=== PATIENT | female | born 1955 | race Caucasian/White ===

== ENCOUNTER 2019-01-07 08:57 | Emergency (ER) | payer MEDICARE, OTHER ==
[~2019-01-07] VITALS: Ht 165.1 cm; Wt 75.1 kg
[~2019-01-07 08:57] MED LIST: ACET-2615 PO; ASPI-1265 PO; ATOR10TA PO; CARV3.12 PO; CYCL-1 PO; LISI2.5T2 PO; NITR0.4T51 SL; TICA90TA PO
[2019-01-07 09:08] VITALS: BP 136/95
[2019-01-07] MEDS ORDERED: LIDOcaine 40mg/ml topical solution MM ONE (11:15)
[2019-01-07] MEDS ORDERED: LIDOcaine 4% (40 mg/ml) topical solution 50ml MM ONE (11:25)
[2019-01-07] MEDS ORDERED: gentamicin 0.1% topical ointment 15gm TP SCH (20:00)
== END 2019-01-07 12:28 | disposition home or self-care (01) ==
LOC: ER 08:57
DX: L08.89 Other specified local infections of the skin and subcutaneous tissue (principal); I25.10 Atherosclerotic heart disease of native coronary artery without angina pectoris; G89.29 Other chronic pain; Z95.5 Presence of coronary angioplasty implant and graft; Z98.51 Tubal ligation status; Z88.5 Allergy status to narcotic agent; Z79.899 Other long term (current) drug therapy; Z79.82 Long term (current) use of aspirin
CPT/HCPCS: 97597; 99284; J2001

== ENCOUNTER 2020-07-05 09:15 | Observation (INO) | payer MEDICAID, MEDICARE ==
[~2020-07-05] VITALS: Ht 165.1 cm; Wt 62.0 kg
[2020-07-05 09:52] LABS: EOSINOPHILS # (AUTO) 0.2 X10'3 (0-0.9); MEAN CORPUSCULAR HEMOGLOBIN 31.8 PG (27.0-31.0); MEAN PLATELET VOLUME 8.2 FL (7.4-10.4)
[2020-07-05 09:54] LABS: BASOPHILS % (AUTO) 0.8 % (0-1); EOSINOPHILS % (AUTO) 3.1 % (0-6); HEMATOCRIT 38.2 % (35.0-45.0); LYMPHOCYTES # (AUTO) 1.9 X10'3 (1.1-4.8); MEAN CORPUSCULAR HGB CONC 33.9 g/dL (33.0-36.5); MEAN CORPUSCULAR VOLUME 93.9 FL (78-98); MONOCYTES # (AUTO) 0.3 X10'3 (0-0.9); MONOCYTES % (AUTO) 4.6 % (2-12); NEUTROPHILS # (AUTO) 3.5 X10'3 (1.8-7.7); NEUTROPHILS % (AUTO) 59.5 % (42-75); PLATELET COUNT 247 X10'3 (140-440); RED BLOOD COUNT 4.07 X10'6 (4.20-5.60); RED CELL DISTRIBUTION WIDTH 13.4 % (11.5-14.5); WHITE BLOOD COUNT 5.9 X10'3 (4.5-11.0)
[2020-07-05 10:11] LABS: PARTIAL THROMBOPLASTIN TIME 27 SECONDS (22-32)
[2020-07-05 10:20] LABS: ALBUMIN 3.8 G/DL (3.4-5.0)
[2020-07-05 10:27] LABS: ALANINE AMINOTRANSFERASE 39 U/L (12-78); ALBUMIN/GLOBULIN RATIO 1.3 (1.1-1.5); ALKALINE PHOSPHATASE 71 IU/L (46-116); ANION GAP 9 (8-16); ASPARTATE AMINO TRANSFERASE 25 U/L (10-37); BILIRUBIN,TOTAL 0.5 MG/DL (0.1-1.0); BLOOD UREA NITROGEN 9 MG/DL (7-18); BUN/CREATININE RATIO 12.5 (6.6-38.0); CHLORIDE 108 MMOL/L (99-107); CREATININE 0.72 MG/DL (0.40-0.90); GLUCOSE 105 MG/DL (70-104); MAGNESIUM 1.8 MG/DL (1.5-2.4); POTASSIUM 4.1 MMOL/L (3.5-5.1); SODIUM 142 MMOL/L (135-145); TOTAL CARBON DIOXIDE 25.2 MMOL/L (24-32); TOTAL PROTEIN 6.7 G/DL (6.4-8.2); eGFR 82 ML/MIN
[2020-07-05] MEDS ORDERED: CLOP75TA33 PO (11:40)
[2020-07-05] MEDS ORDERED: ondansetron/PF 4mg/2ml inj IV PRN (11:45)
[2020-07-05] MEDS ORDERED: magnesium hydroxide 30ml (MOM) UD suspension PO PRN (11:45)
[2020-07-05] MEDS ORDERED: HYDROcodone/acetaminophen 5mg/325mg tablet PO PRN (11:45)
[2020-07-05] MEDS ORDERED: acetaminophen 325mg tablet PO PRN ×2 (11:45)
[2020-07-05] MEDS ORDERED: nitroGLYCERIN 0.4mg SUBLingual tab SL PRN ×2 (11:45→12:55)
[2020-07-05] MEDS ORDERED: morphine 2 MG/ML inj. syringe IV PRN ×2 (11:45)
[2020-07-05] MEDS ORDERED: HYDROcodone/acetaminophen 10/325mg tab PO PRN (11:45)
[2020-07-05] MEDS ORDERED: mag hydrox/Alum hydrox/simeth 30ml oral suspension PO PRN (11:45)
[2020-07-05] MEDS ORDERED: cyclobenzaprine 10mg tablet PO PRN (12:55)
--- NOTE | 2020-07-05 13:28 | NUR ---
Pt stable for transfer to unit. Oriented to room and call light by resource nurse. In no apparent distress. Will continue to monitor. VS: [id number]%-[id number]
--- NOTE | 2020-07-05 13:28 | NUR ---
Patient in room PCU 3012. I have received report from KEVIN Keys and had the opportunity to ask questions and assume patient care.
[2020-07-05 13:30] VITALS: BP 144/54
[2020-07-05 15:00] VITALS: BP 126/53
[2020-07-05 18:00] VITALS: BP 143/81
--- NOTE | 2020-07-05 18:00 | NUR ---
Patient in room U 3012. I have received report from Martha BROWN and had the opportunity to ask questions and assume patient care. Addendum: 07/05/20 at 1858 by Devika Goff RN Amended: Links added.
--- NOTE | 2020-07-05 18:14 | NUR ---
Problems reprioritized. Patient report given, questions answered & plan of care reviewed with KEVIN Fortune.
[2020-07-05] MEDS ORDERED: carVEDilol 3.125mg tablet PO SCH (20:00)
--- NOTE | 2020-07-05 20:00 | NUR ---
pt. awake A & O with no c/o chest ain at this time. Call light within reach. Addendum: 07/06/20 at 0703 by Devika Goff RN Amended: Links added.
[2020-07-05] MEDS ORDERED: atorvastatin 10mg tablet PO SCH (21:00)
[2020-07-05 22:00] VITALS: BP 117/58
[2020-07-06 02:00] VITALS: BP_SYST 116; BP_SYST 161; BP_DIAS 57
[2020-07-06 05:48] LABS: BASOPHILS % (AUTO) 0.7 % (0-1); EOSINOPHILS # (AUTO) 0.3 X10'3 (0-0.9); EOSINOPHILS % (AUTO) 4.9 % (0-6); HEMATOCRIT 37.5 % (35.0-45.0); HEMOGLOBIN 12.6 g/dl (12.0-16.0); LYMPHOCYTES % (AUTO) 38.8 % (21-51); MEAN CORPUSCULAR HEMOGLOBIN 31.4 PG (27.0-31.0); MEAN CORPUSCULAR HGB CONC 33.6 g/dL (33.0-36.5); MEAN CORPUSCULAR VOLUME 93.4 FL (78-98); MEAN PLATELET VOLUME 8.4 FL (7.4-10.4); MONOCYTES # (AUTO) 0.3 X10'3 (0-0.9); MONOCYTES % (AUTO) 5.4 % (2-12); NEUTROPHILS # (AUTO) 2.6 X10'3 (1.8-7.7); NEUTROPHILS % (AUTO) 50.2 % (42-75); PLATELET COUNT 214 X10'3 (140-440); RED BLOOD COUNT 4.01 X10'6 (4.20-5.60); WHITE BLOOD COUNT 5.2 X10'3 (4.5-11.0)
--- NOTE | 2020-07-06 06:00 | NUR ---
Problems reprioritized. Patient report given, questions answered & plan of care reviewed with Paz BROWN. Addendum: 07/06/20 at 0706 by Devika Goff RN Amended: Links added.
--- NOTE | 2020-07-06 06:00 | NUR ---
Patient in room PCU 3012. I have received report from Devika BROWN and had the opportunity to ask questions and assume patient care.
[2020-07-06 06:15] LABS: ALBUMIN 3.3 G/DL (3.4-5.0); ANION GAP 6 (8-16); BLOOD UREA NITROGEN 9 MG/DL (7-18); BUN/CREATININE RATIO 12.3 (6.6-38.0); CALCIUM 8.8 MG/DL (8.5-10.1); CHLORIDE 108 MMOL/L (99-107); CREATININE 0.73 MG/DL (0.40-0.90); GLUCOSE 92 MG/DL (70-104); POTASSIUM 4.2 MMOL/L (3.5-5.1); SODIUM 141 MMOL/L (135-145); TOTAL CARBON DIOXIDE 26.7 MMOL/L (24-32); eGFR 80 ML/MIN
[2020-07-06 07:00] VITALS: BP 114/55
[2020-07-06 07:34] VITALS: BP_SYST 114
[2020-07-06] MEDS ORDERED: aspirin 81mg tab.chew PO SCH (08:00)
[2020-07-06] MEDS ORDERED: lisinopril 2.5mg tablet PO SCH (08:00)
[2020-07-06] MEDS ORDERED: aspirin 81mg tablet.DR PO SCH (08:00)
[2020-07-06] MEDS ORDERED: clopidogrel 75mg tablet PO SCH (08:00)
--- NOTE | 2020-07-06 10:10 | NUR ---
Patient was discharged to home at 1004. PIV was removed with cannula intact. Patient was picked up by her . Discharge instructions were reviewed with the patient and she verbalized understanding of instructions and when to seek medical attention. No new RX.
== END 2020-07-06 10:04 | disposition home or self-care (01) ==
LOC: ER 09:16 → ED HOLD 11:44 → EDBEDREQ 12:48 → PCU 3S 13:29
PROVIDERS: ADMIT Internal Medicine; ATTEND Internal Medicine
DX: R00.1 Bradycardia, unspecified (principal); I25.119 Atherosclerotic heart disease of native coronary artery with unspecified angina pectoris; R07.89 Other chest pain; I10 Essential (primary) hypertension; E78.5 Hyperlipidemia, unspecified; I25.2 Old myocardial infarction; E78.00 Pure hypercholesterolemia, unspecified; G89.29 Other chronic pain; M54.9 Dorsalgia, unspecified; F17.200 Nicotine dependence, unspecified, uncomplicated; Z98.51 Tubal ligation status; Z98.61 Coronary angioplasty status; Z79.82 Long term (current) use of aspirin; Z79.02 Long term (current) use of antithrombotics/antiplatelets; Z79.899 Other long term (current) drug therapy; Z88.5 Allergy status to narcotic agent
CPT/HCPCS: 36415; 71045; 80048; 80053; 83735; 83880; 84443; 84484; 85025; 85610; 85730; 93005; 99285; G0378

== ENCOUNTER 2021-06-19 08:22 | Emergency (ER) | payer MEDICARE, SELFPAY ==
[~2021-06-19] VITALS: Ht 165.1 cm; Wt 61.4 kg
[~2021-06-19 08:22] MED LIST changes: -ACET-2615 PO; -CARV3.12 PO; +CLOP75TA33 PO; +LISI2.5T14 PO; -LISI2.5T2 PO; -TICA90TA PO
[2021-06-19 09:07] LABS: BASOPHILS % (AUTO) 0.6 % (0-1); EOSINOPHILS # (AUTO) 0.3 X10'3 (0-0.9); EOSINOPHILS % (AUTO) 3.4 % (0-6); HEMATOCRIT 39.1 % (35.0-45.0); HEMOGLOBIN 13.1 g/dl (12.0-16.0); LYMPHOCYTES # (AUTO) 1.7 X10'3 (1.1-4.8); LYMPHOCYTES % (AUTO) 23.4 % (21-51); MEAN CORPUSCULAR HEMOGLOBIN 31.6 PG (27.0-31.0); MEAN CORPUSCULAR HGB CONC 33.6 g/dL (33.0-36.5); MEAN CORPUSCULAR VOLUME 93.9 FL (78-98); MONOCYTES # (AUTO) 0.4 X10'3 (0-0.9); MONOCYTES % (AUTO) 5.5 % (2-12); NEUTROPHILS # (AUTO) 4.9 X10'3 (1.8-7.7); NEUTROPHILS % (AUTO) 67.1 % (42-75); PLATELET COUNT 311 X10'3 (140-440); RED BLOOD COUNT 4.16 X10'6 (4.20-5.60); RED CELL DISTRIBUTION WIDTH 13.5 % (11.5-14.5); WHITE BLOOD COUNT 7.3 X10'3 (4.5-11.0)
[2021-06-19 09:44] LABS: ALANINE AMINOTRANSFERASE 40 U/L (12-78); ALBUMIN 4.1 G/DL (3.4-5.0); ALBUMIN/GLOBULIN RATIO 1.3 (1.1-1.5); ALKALINE PHOSPHATASE 97 IU/L (46-116); ANION GAP 8 (8-16); ASPARTATE AMINO TRANSFERASE 19 U/L (10-37); BILIRUBIN,TOTAL 0.5 MG/DL (0.1-1.0); BLOOD UREA NITROGEN 10 MG/DL (7-18); BUN/CREATININE RATIO 13.7 (6.6-38.0); CALCIUM 9.1 MG/DL (8.5-10.1); CHLORIDE 106 MMOL/L (99-107); CREATININE 0.73 MG/DL (0.40-0.90); GLUCOSE 95 MG/DL (70-104); POTASSIUM 4.2 MMOL/L (3.5-5.1); SODIUM 141 MMOL/L (135-145); TOTAL CARBON DIOXIDE 26.8 MMOL/L (24-32); TOTAL PROTEIN 7.2 G/DL (6.4-8.2); eGFR 80 ML/MIN
[2021-06-19 12:07] VITALS: BP 125/67
== END 2021-06-19 12:07 | disposition home or self-care (01) ==
LOC: ER 08:22
DX: M62.838 Other muscle spasm (principal); R07.89 Other chest pain; R20.0 Anesthesia of skin; M54.9 Dorsalgia, unspecified; I25.10 Atherosclerotic heart disease of native coronary artery without angina pectoris; E78.00 Pure hypercholesterolemia, unspecified; G89.29 Other chronic pain; Z95.5 Presence of coronary angioplasty implant and graft; Z98.51 Tubal ligation status; Z79.82 Long term (current) use of aspirin; Z79.899 Other long term (current) drug therapy; Z72.89 Other problems related to lifestyle
CPT/HCPCS: 36415; 71045; 80053; 83880; 84484; 85025; 93005; 99285

== ENCOUNTER 2021-12-06 07:45 | Emergency (ER) | payer MEDICARE, SELFPAY ==
[~2021-12-06] VITALS: Ht 165.1 cm; Wt 65.1 kg
[2021-12-06 07:46] VITALS: BP 172/78
--- NOTE | 2021-12-06 07:58 | NUR ---
pt ambulated with steady gait to er bed 12.
--- NOTE | 2021-12-06 08:24 | NUR ---
xray at bedside.
--- NOTE | 2021-12-06 08:50 | NUR ---
provider at bedside.
[2021-12-06] MEDS ORDERED: ALBUTEROL INHALER 1 PUFF/90 MCG INHALER IH PRN (09:05)
== END 2021-12-06 09:32 | disposition home or self-care (01) ==
LOC: ER 07:45
DX: S93.601A Unspecified sprain of right foot, initial encounter (principal); I25.10 Atherosclerotic heart disease of native coronary artery without angina pectoris; E78.00 Pure hypercholesterolemia, unspecified; G89.29 Other chronic pain; Z95.5 Presence of coronary angioplasty implant and graft; Z98.51 Tubal ligation status; Z72.89 Other problems related to lifestyle; Z88.8 Allergy status to other drugs, medicaments and biological substances; Z79.82 Long term (current) use of aspirin; Z79.899 Other long term (current) drug therapy; X58.XXXA Exposure to other specified factors, initial encounter; Y93.89 Activity, other specified; Y92.89 Other specified places as the place of occurrence of the external cause; Y99.8 Other external cause status
CPT/HCPCS: 29515; 73630; 99283

== ENCOUNTER 2022-03-07 16:59 | Emergency (ER) | payer MEDICARE, SELFPAY ==
[~2022-03-07] VITALS: Ht 165.1 cm; Wt 63.2 kg
[2022-03-07] MEDS ORDERED: LIDOcaine 5% patch TP STA ×2 (18:08→20:29)
[2022-03-07] MEDS ORDERED: IODIXANOL 320 MG/ML INFUS..BTL 100ML IV ONE (18:15)
[2022-03-07 18:54] LABS: BASOPHILS % (AUTO) 0.4 % (0-1); EOSINOPHILS # (AUTO) 0.2 X10'3 (0-0.9); EOSINOPHILS % (AUTO) 2.1 % (0-6); HEMATOCRIT 38.3 % (35.0-45.0); HEMOGLOBIN 13.3 g/dl (12.0-16.0); LYMPHOCYTES # (AUTO) 1.5 X10'3 (1.1-4.8); LYMPHOCYTES % (AUTO) 15.2 % (21-51); MEAN CORPUSCULAR HEMOGLOBIN 31.8 PG (27.0-31.0); MEAN CORPUSCULAR HGB CONC 34.7 g/dL (33.0-36.5); MEAN CORPUSCULAR VOLUME 91.7 FL (78-98); MEAN PLATELET VOLUME 8.1 FL (7.4-10.4); MONOCYTES # (AUTO) 0.3 X10'3 (0-0.9); MONOCYTES % (AUTO) 2.9 % (2-12); NEUTROPHILS % (AUTO) 79.4 % (42-75); PLATELET COUNT 298 X10'3 (140-440); RED BLOOD COUNT 4.18 X10'6 (4.20-5.60); RED CELL DISTRIBUTION WIDTH 13.4 % (11.5-14.5); WHITE BLOOD COUNT 10.1 X10'3 (4.5-11.0)
[2022-03-07] MEDS ORDERED: morphine 4 MG/ML inj SYRINge IV ONE (19:00)
[2022-03-07] MEDS ORDERED: ondansetron/PF 4mg/2ml inj IV ONE (19:00)
[2022-03-07 19:24] LABS: APTT 27 SECONDS (22-32)
[2022-03-07 19:45] LABS: CLARITY,URINE CLEAR (Clear); COLOR,URINE YELLOW (Yellow); GLUCOSE, URINE NEGATIVE (Neg); KETONES,URINE NEGATIVE (Neg); LEUKOCYTE ESTERASE ,URINE NEGATIVE (Neg); NITRITES, URINE NEGATIVE (Neg); OCCULT BLOOD,URINE NEGATIVE (Neg); PH,URINE 5.5 (4.8-8.0); PROTEIN,URINE NEGATIVE (Neg); UROBILINOGEN,URINE 0.2 E.U/dL (0.2-1.0)
[2022-03-07 19:46] LABS: UA COLLECTION TYPE CLN CATCH MIDSTREAM
[2022-03-07 20:12] LABS: ALANINE AMINOTRANSFERASE 28 U/L (12-78); ALBUMIN/GLOBULIN RATIO 1.3 (1.1-1.5); ALKALINE PHOSPHATASE 89 IU/L (46-116); ANION GAP 7 (8-16); ASPARTATE AMINO TRANSFERASE 18 U/L (10-37); BILIRUBIN,TOTAL 0.3 MG/DL (0.1-1.0); BLOOD UREA NITROGEN 10 MG/DL (7-18); BUN/CREATININE RATIO 12.3 (6.6-38.0); CHLORIDE 106 MMOL/L (99-107); CREATININE 0.81 MG/DL (0.40-0.90); GLUCOSE 114 MG/DL (70-104); SODIUM 138 MMOL/L (135-145); TOTAL CARBON DIOXIDE 24.6 MMOL/L (24-32); eGFR 71 ML/MIN
[2022-03-07] MEDS ORDERED: LIDO1ADH78 TOP (20:34)
[2022-03-07 20:44] VITALS: BP 153/68
== END 2022-03-07 21:00 | disposition home or self-care (01) ==
LOC: ER 16:59
DX: M54.50 Low back pain, unspecified (principal); R11.2 Nausea with vomiting, unspecified; I71.4 Abdominal aortic aneurysm, without rupture; I10 Essential (primary) hypertension; I25.10 Atherosclerotic heart disease of native coronary artery without angina pectoris; E78.00 Pure hypercholesterolemia, unspecified; G89.29 Other chronic pain; Z98.51 Tubal ligation status; Z98.890 Other specified postprocedural states; Z72.89 Other problems related to lifestyle; Z88.5 Allergy status to narcotic agent; Z88.8 Allergy status to other drugs, medicaments and biological substances; Z79.82 Long term (current) use of aspirin; Z79.899 Other long term (current) drug therapy
CPT/HCPCS: 36415; 71275; 74174; 80053; 81003; 84484; 85025; 85610; 85730; 93005; 96374; 96375; 99285; J2270; J2405; Q9967

== ENCOUNTER 2023-03-06 07:36 | Emergency (ER) | payer MEDICARE, SELFPAY ==
[~2023-03-06] VITALS: Ht 165.1 cm; Wt 65.9 kg
[~2023-03-06 07:36] MED LIST changes: +LIDO1ADH78 TOP
[2023-03-06 07:50] VITALS: BP 164/65
--- NOTE | 2023-03-06 08:33 | NUR ---
OP WOUND CARE REFERRAL FAXED
[2023-03-06] MEDS ORDERED: tetanus & diphtheria toxoid (Td) vaccine 0.5ml IMVAC ONE (08:40)
[2023-03-06] MEDS ORDERED: TETanus/Pertussis (Acell)/Diphther VAC/PF (Tdap-Adult) 0.5ml syringe IMVAC ONE (08:45)
== END 2023-03-06 09:14 | disposition home or self-care (01) ==
LOC: ER 07:36
DX: R20.8 Other disturbances of skin sensation (principal); E78.00 Pure hypercholesterolemia, unspecified; Z88.5 Allergy status to narcotic agent; Z98.51 Tubal ligation status
CPT/HCPCS: 90471; 90715; 99284

== ENCOUNTER 2024-06-26 08:03 | Outpatient (CLI) | payer MEDICARE, SELFPAY ==
[2024-06-26 09:17] LABS: ALBUMIN 3.8 G/DL (3.4-5.0); ANION GAP 5 (8-16); BLOOD UREA NITROGEN 5 MG/DL (7-18); CALCIUM 9.1 MG/DL (8.5-10.1); CHLORIDE 106 MMOL/L (99-107); CREATININE 0.71 MG/DL (0.40-0.90); GLUCOSE 103 MG/DL (70-104); POTASSIUM 4.6 MMOL/L (3.5-5.1); SODIUM 139 MMOL/L (135-145); TOTAL CARBON DIOXIDE 27.8 MMOL/L (24-32); eGFR 82 ML/MIN
[2024-06-26] MEDS ORDERED: iohexol 350MG/ML 100ml bottle IV ONE (09:50)
== END 2024-06-26 23:59 | disposition home or self-care (01) ==
LOC: RAD 08:03
PROVIDERS: ATTEND Family Medicine
DX: Z12.2 Encounter for screening for malignant neoplasm of respiratory organs (principal); I25.10 Atherosclerotic heart disease of native coronary artery without angina pectoris; I70.0 Atherosclerosis of aorta; I77.810 Thoracic aortic ectasia; I51.7 Cardiomegaly; D35.02 Benign neoplasm of left adrenal gland; F17.210 Nicotine dependence, cigarettes, uncomplicated; Z79.899 Other long term (current) drug therapy
CPT/HCPCS: 36415; 71271; 71275; 80048; Q9967

== ENCOUNTER 2024-10-18 18:56 | Emergency (ER) | payer MEDICARE, SELFPAY ==
[~2024-10-18] VITALS: Ht 165.1 cm; Wt 69.5 kg
[2024-10-18 19:00] VITALS: BP 163/67; PULSE 76; RESP 16; TEMP 97.8; O2SAT 95
[2024-10-18] MEDS: amoxicillin 250mg capsule PO STA (21:25)
[2024-10-18] MEDS ORDERED: AMOX875T10 PO (21:28)
== END 2024-10-18 21:35 | disposition home or self-care (01) ==
LOC: ER 18:57
DX: K04.7 Periapical abscess without sinus (principal); I25.10 Atherosclerotic heart disease of native coronary artery without angina pectoris; E78.00 Pure hypercholesterolemia, unspecified; G89.29 Other chronic pain; Z98.51 Tubal ligation status; Z88.6 Allergy status to analgesic agent; Z88.8 Allergy status to other drugs, medicaments and biological substances; Z79.899 Other long term (current) drug therapy; Z72.89 Other problems related to lifestyle
CPT/HCPCS: 99283